=== PATIENT | female | born 1950 | race Caucasian/White ===

== ENCOUNTER 2024-10-16 09:08 | Day surgery (SDC) | payer MEDICARE, BC ==
[~2024-10-16 09:08] MED LIST: Lactated Ringers 1,000 ML IV PRN
[2024-10-16] MEDS ORDERED: Sodium Chloride 0.9% 10 ML Syringe IV ONE (09:09)
[2024-10-16] MEDS ORDERED: fentaNYL 100 MCG/2 ML SDV IV ONE (09:09)
[2024-10-16] MEDS ORDERED: Midazolam 1 MG/ML 2 ML SDV IV ONE (09:09)
[2024-10-16] MEDS: Sodium Chloride 0.9% 10 ML Syringe FLUSH PRN (09:35)
[2024-10-16] MEDS: acetaZOLAMIDE 500 MG Cap.ER PO ONE (11:09)
== END 2024-10-16 11:27 | disposition home or self-care (01) ==
LOC: FB.SDS 09:08
PROVIDERS: ATTEND Ophthalmology
DX: H25.813 Combined forms of age-related cataract, bilateral (principal); H40.1112 Primary open-angle glaucoma, right eye, moderate stage; K21.9 Gastro-esophageal reflux disease without esophagitis; I48.0 Paroxysmal atrial fibrillation; H40.1121 Primary open-angle glaucoma, left eye, mild stage; D31.31 Benign neoplasm of right choroid; H43.813 Vitreous degeneration, bilateral; H04.123 Dry eye syndrome of bilateral lacrimal glands; H52.13 Myopia, bilateral
CPT/HCPCS: A9270-GY; J2250; J3010; J3490; V2632

== ENCOUNTER → 2024-10-30 | Day surgery (SDC) | payer MEDICARE, BC ==
[~2024-10-30] MED LIST changes: +Midazolam 1 MG/ML 2 ML SDV IV ONE; +fentaNYL 100 MCG/2 ML SDV IV ONE
[2024-10-30] MEDS: Sodium Chloride 0.9% 10 ML Syringe FLUSH PRN (08:15)
[2024-10-30] MEDS: acetaZOLAMIDE 500 MG Cap.ER PO ONE (10:47)
== END ==
LOC: FB.SDS 07:33
PROVIDERS: ATTEND Ophthalmology
DX: H26.9 Unspecified cataract (principal); H40.1121 Primary open-angle glaucoma, left eye, mild stage; I48.0 Paroxysmal atrial fibrillation; Z79.899 Other long term (current) drug therapy; Z88.5 Allergy status to narcotic agent
CPT/HCPCS: 66991; A9270; J2250; J3010; V2632; 00142; 99100